=== PATIENT | male | born 1945 | race Caucasian/White ===

== ENCOUNTER 2025-02-17 11:39 | Day surgery (SDC) | payer OTHER ==
[2025-02-17] VITALS (12 sets, daily range): BP systolic 125–181; BP diastolic 69–113; PULSE 59–85; RESP 10–18; TEMP 98; O2SAT 92–98
[~2025-02-17] VITALS: Ht 180.3 cm; Wt 99.9 kg
[~2025-02-17 11:39] MED LIST: APIX5TAB3 PO; METF-900 PO; METO-384 PO
[2025-02-17] MEDS ORDERED: fentaNYL/PF 50MCG/1 ML 2ML syringe IV ONE (12:15)
[2025-02-17 12:39] LABS: MEAN PLATELET VOLUME 9.0 FL (7.4-10.4); RED CELL DISTRIBUTION WIDTH 12.5 % (11.5-14.5)
[2025-02-17 12:57] LABS: CREATININE 1.19 MG/DL (0.60-1.10); TOTAL CARBON DIOXIDE 24.4 MMOL/L (24-32); eCRCL 53 ML/MIN; eGFR 59 ML/MIN
[2025-02-17 13:00] LABS: APTT 25 SECONDS (22-32); INR 1.0 INR
[2025-02-17] MEDS ORDERED: ASPI-611 PO (16:08)
[2025-02-17] MEDS ORDERED: CLOP75TA34 PO (16:08)
[2025-02-17] MEDS: MIDAZolam 1mg/ml 10ml vial IV ONE (16:24)
[2025-02-17] MEDS: normal saline 1000ml 1,000 ML IV SCH (16:25)
--- NOTE | 2025-03-22 20:26 | CARDIOLOGY REPORT ---
DATE OF SERVICE: 02/17/2025 DICTATING PHYSICIAN: Grant Davis MD DATE OF STUDY: 02/17/2025. NAME OF PROCEDURE: Transesophageal echocardiogram. 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 PHYSICIAN: Grant Davis MD DESCRIPTION OF PROCEDURE: After informed consent was obtained, the patient was brought to the lab where he was prepped and draped in the usual manner. After gradual increments of Versed and fentanyl, when the patient was comfortable, the transesophageal echocardiographic probe was passed into the esophagus and required images obtained. Transesophageal echocardiogram revealed no thrombus with an occluded, well-sealed left atrial appendage. 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 No thrombus noted. Grant Davis MD TID: [id number] RECEIPT: [id number] MALVIN/QUYEN
== END 2025-02-17 16:40 | disposition home or self-care (01) ==
LOC: SSTAY O 11:39
PROVIDERS: ATTEND Student in an Organized Health Care Education/Training Program
DX: I48.91 Unspecified atrial fibrillation (principal); I10 Essential (primary) hypertension
CPT/HCPCS: 36415; 80048; 85025; 85610; 85730; 93312; 94760; J2250; J7030; 93325